=== PATIENT | male | born 1985 ===

== ENCOUNTER 2018-11-07 23:31 | Emergency (ER) | payer MEDICAID, OTHER ==
[2018-11-07 23:46] VITALS: BMI 20.3
--- NOTE | 2018-11-08 00:02 | ED PDOC ---
HPI: Psych/Substance Abuse Chief Complaint (Provider): AGGRESSIVE BEHAVIOR History Per: Patient (33 Y/O MALE BROUGHT BY [employer] FOR EVALUATION OF AGGRESSIVE BEHAVIOR NOTED AT [facility]. PATIENT PERSISTENTLY VERBALLY AGGRESSIVE IN ED. DENIES ANY OTHER COMPLAINTS. REFUSING TO ANSWER QUESTIONS.) <Elenita Snider - Last Filed: 11/08/18 04:46> <Cristo Perez - Last Filed: 11/08/18 06:46> Time Seen by Provider: 11/08/18 00:00 Chief Complaint (Nursing): Alcohol Ingestion Past Medical History Reviewed: Historical Data, Nursing Documentation, Vital Signs Vital Signs: Last Vital Signs Temp Pulse 125 H 11/07/18 23:35 Resp 19 11/07/18 23:35 BP Pulse Ox 99 11/07/18 23:35 Primary Care Provider: FAMILY PROVIDER,NO - Family History Family History: States: Unknown Family Hx - Immunization History Hx Tetanus Toxoid Vaccination: Yes (2 years ago) <Elenita Snider - Last Filed: 11/08/18 04:46> Vital Signs: Last Vital Signs Temp 97.8 F 11/08/18 00:57 Pulse 71 11/08/18 02:57 Resp 18 11/08/18 02:57 BP 100/57 L 11/08/18 02:57 Pulse Ox 99 11/08/18 04:46 <Cristo Perez - Last Filed: 11/08/18 06:46> - Allergies Allergies/Adverse Reactions: Allergies Allergy/AdvReac Type Severity Reaction Status Date / Time No Known Allergies Allergy Verified 04/09/16 15:04 Review of Systems ROS Statement: Except As Marked, All Systems Reviewed And Found Negative <Elenita Snider - Last Filed: 11/08/18 04:46> Physical Exam - Reviewed Nursing Documentation Reviewed: Yes Vital Signs Reviewed: Yes (bp 100/57) - Physical Exam Appears: Positive for: Well, Non-toxic, No Acute Distress Head Exam: Positive for: ATRAUMATIC, NORMAL INSPECTION, NORMOCEPHALIC Skin: Positive for: Normal Color, Warm, DRY Eye Exam: Positive for: EOMI, Normal appearance, PERRL ENT: Positive for: Normal ENT Inspection Neck: Positive for: Normal, Painless ROM Cardiovascular/Chest: Positive for: Regular Rate, Rhythm Respiratory: Positive for: CNT, Normal Breath Sounds Gastrointestinal/Abdominal: Positive for: Normal Exam, Soft Back: Positive for: Normal Inspection Extremity: Positive for: Normal ROM Neurological/Psych: Positive for: Awake, Alert, Normal Tone, Other (PATIENT AGGRESSIVE/THRASHING IN ED/ SCREAMING AT STAFF ) <Elenita Snider - Last Filed: 11/08/18 04:46> - Laboratory Results Result Diagrams: 11/08/18 00:25 11/08/18 00:25 - ECG O2 Sat by Pulse Oximetry: 99 <Elenita Snider - Last Filed: 11/08/18 04:46> - Laboratory Results Result Diagrams: 11/08/18 00:25 11/08/18 00:25 Lab Results: Total Bilirubin 0.6 mg/dl (0.2-1.3) 11/08/18 00:25 AST 55 U/L (17-59) 11/08/18 00:25 ALT 46 U/L (21-72) 11/08/18 00:25 Alkaline Phosphatase 71 U/L (38-126) 11/08/18 00:25 Total Protein 7.7 G/DL (6.3-8.2) 11/08/18 00:25 Albumin 4.5 g/dL (3.5-5.0) 11/08/18 00:25 Globulin 3.2 gm/dL (2.2-3.9) 11/08/18 00:25 Albumin/Globulin Ratio 1.4 (1.0-2.1) 11/08/18 00:25 <Cristo Perez - Last Filed: 11/08/18 06:46> Medical Decision Making Medical Decision Makin:50 Despite multiple attempts at deescalating the situation. Patient required physical restraints for agitation and persistent threat to self and others due to aggressive, combative behavior. Patient was also given 5 mg of Haldol and 2 mg of Ativan due to aggressive behavior. 00:35 On re-evaluation, patient is no longer agitated and resting comfortably in ED bed. Scribe Attestation: Documented by Kaley Puente, acting as a scribe Isaias Snider PA-C Provider Scribe Attestation: All medical record entries made by the Scribe were at my direction and personally dictated by me. I have reviewed the chart and agree that the record accurately reflects my personal performance of the history, physical exam, m edical decision making, and the department course for this patient. I have also personally directed, reviewed, and agree with the discharge instructions and disposition. <Elenita Snider - Last Filed: 11/08/18 04:46> Medical Decision Makin:29 On re-evaluation, patient reports improvement of symptoms and is stable for discharge. He remains calm, in no distress and is ambulating with steady gait. Advised patient to follow up with PMD. --- Scribe Attestation: Documented by Kaley Puente, acting as a scribe German Perez MD Provider Scribe Attestation: All medical record entries made by the Scribe were at my direction and personally dictated by me. I have reviewed the chart and agree that the record accurately reflects my personal performance of the history, physical exam, medical decision making, and the department course for this patient. I have also personally directed, reviewed, and agree with the discharge instructions and disposition. <Cristo Perez - Last Filed: 11/08/18 06:46> Disposition - Disposition Disposition: Transfer of Care Disposition Time: 05:00 Handoff Comments: Dr. Perez to continue with care of patient <Elenita Snider - Last Filed: 11/08/18 04:46> - Patient ED Disposition Is Patient to be Admitted: No Counseled Patient/Family Regarding: Studies Performed, Diagnosis, Need For Followup - Disposition Disposition: Routine/Home Disposition Time: 06:38 <Cristo Perez - Last Filed: 11/08/18 06:46> - Clinical Impression Clinical Impression: Alcohol ingestion - Disposition Referrals: Alcoholics Anonymous [Outside] Condition: IMPROVED Instructions: Alcohol Use - When Is Drinking a Problem? Forms: [employer] (Burmese)
[2018-11-08 00:39] LABS: BASO % 0.3 % (0.0-2.0); EOS % 1.2 % (0.0-4.0); HEMOGLOBIN 13.7 g/dL (12.0-18.0); LYMPH % 57.3 % (20.0-40.0); MEAN CORPUSCULAR HEMOGLOBIN 33.2 pg (27.0-31.0); MEAN CORPUSCULAR HGB CONC 33.5 g/dL (33.0-37.0); MEAN PLATELET VOLUME 9.1 fl (7.2-11.7); MONO # 0.2 K/uL (0.0-0.8); MONO % 6.7 % (0.0-10.0); NEUT # 1.2 K/uL (1.8-7.0); NEUT % 34.5 % (50.0-75.0); NRBC % 0.1 % (0.0-0.0); RBC 4.12 Mil/uL (4.40-5.90); RED CELL DISTRIBUTION WIDTH 13.6 % (11.5-14.5); WHITE BLOOD COUNT 3.5 K/uL (4.8-10.8)
[2018-11-08 00:45] LABS: ALB/GLOB RATIO 1.4 (1.0-2.1); ALBUMIN 4.5 g/dL (3.5-5.0); ALT/SGPT 46 U/L (21-72); AST/SGOT 55 U/L (17-59); BLOOD UREA NITROGEN 15 mg/dl (9-20); CALCIUM 8.7 mg/dL (8.4-10.2); GFR NON-AFRICAN AMERICAN > 60
[2018-11-08] MEDS ORDERED: Potassium Chloride 20 mEq ER Tab PO ONE ×2 (02:05→06:49)
[2018-11-08 03:45] VITALS: TEMP 97.8
[2018-11-08 06:45] VITALS: BP 109/70; PULSE 72; RESP 17; O2SAT 98
--- NOTE | 2018-11-08 10:22 | CARD ---
APPROVED REPORT Date of service: 11/08/2018 EKG Measurement Heart [id number] <Conclusion> Normal sinus rhythm Voltage criteria for left ventricular hypertrophy Prolonged QT Abnormal ECG
== END 2018-11-08 07:01 | disposition home or self-care (01) ==
LOC: H.ER 23:31
DX: F10.10 Alcohol abuse, uncomplicated (principal); Y90.8 Blood alcohol level of 240 mg/100 ml or more
CPT/HCPCS: 80053; 80320; 85025; 93005; 96372; 99284; J1630; J2060